=== PATIENT | male | born 1970 | race Caucasian/White ===

== ENCOUNTER → 2020-02-25 10:15 | Outpatient (CLI) | payer BC, SELFPAY ==
[2020-02-25 08:19] VITALS: BMI 34.0
== END ==
PROVIDERS: Referring Provider Physician Assistant Surgical; Visit Provider Physician Assistant Surgical
DX: Z20.828 Contact with and (suspected) exposure to other viral communicable diseases (principal)
CPT/HCPCS: 87635; U0003